=== PATIENT | female | born 1995 | race Caucasian/White ===

== ENCOUNTER 2016-07-27 08:33 | Inpatient (IN) | payer BC ==
[2016-07-27] MEDS ORDERED: SODIUM CHLORIDE 0.9% 3 ML FLUSH FLUSH PRN (08:56)
[2016-07-27] MEDS ORDERED: HYDROmorphone 1 MG INJECTION IV ONE ×2 (08:56→14:14)
[2016-07-27] MEDS ORDERED: ONDANSETRON HCL 4 MG/2 ML VIAL IV ONE ×2 (08:56→10:00)
[2016-07-27] MEDS ORDERED: NS 1,000 ML IV ONE ×2 (08:56)
--- NOTE | 2016-07-27 09:11 | EDPRACDOC ---
<Nida Bailon Hawa - Last Filed: 07/27/16 14:15> - General Information Information Source: Patient Mode Of Arrival: Car - History of Present Illness Onset: SEVERAL MONTHS Pain Location: Reports: Epigastric, RUQ Pain Context: Reports: Spontaneous (DURING AND AFTER ) Pain Severity: Moderate Pain Quality: Reports: Aching, Sharp, Stabbing Pain Radiation: Reports: Back (RT) Last Menstrual Period: NOW Blood Type: Unknown Adult Abdominal History: Denies: Urolithiasis Female Abdominal History: Denies: UTI, Ectopic, PID, Urolithiasis Modifying Factors: improves with: Food Female Associated Signs & Symptoms: Reports: Nausea, Vomiting Oral Intake: Normal Urinary Output: Normal <Nickolas Peters - Last Filed: 07/27/16 14:48> - General Information Chief Complaint: Nausea,Vomiting,Diarrhea Stated Complaint: VOMITING/ FEVER Time Seen by Provider: 07/27/16 08:54 Home Medications: Home Medications Pantoprazole Sodium [Protonix] 40 mg PO DAILY #30 tab 10/11/15 Norgestimate-Ethinyl Estradiol [Sprintec] 1 each PO DAILY 07/27/16 Ondansetron [Zofran Odt] 4 mg PO Q8H PRN 07/27/16 Promethazine [Phenergan] 25 mg PO Q6H PRN 07/27/16 Promethazine [Phenergan] 25 mg TX Q6H PRN 07/27/16 Ranitidine [Zantac] 300 mg PO HS 07/27/16 Allergies/Adverse Reactions: Allergies Allergy/AdvReac Type Severity Reaction Status Date / Time No Known Allergies Allergy Verified 07/27/16 08:48 - History of Present Illness HPI: PT STATES HAS BEEN HAVING EPIGASTRIC AND RUQ PAIN FOR 2-3 MONTHS, PT STATES SHE IS POST APPROX 2 MONTHS AND WAS TOLD AT [facility] THAT HER GALLBLADDER WAS BAD AND THEY GAVE HER FLUIDS PHENERGAN AND VITAMINS AND TOLD IF SHE STARTED HAVING MORE PAIN RUNNING FEVER OR N/V TO COME TO THE ED SHE MAY NEED HER GALLBLADDER OUT. (Nickolas Peters) ED Past Medical History - History Reviewed Yes Nurses notes reviewed and agree except as marked Travel Outside of [place] in the Last 3 Months?: No - Patient Medical History GI/ History: Reports: Gastroesophageal Reflux. Denies: Urinary Tract Infection Musculoskeletal History: Denies: Arthritis Systemic History: Denies: Cancer Surgical History: Denies: Hysterectomy - Social Medical History Smoking Status: Never smoker ETOH: None Substance Abuse: None Lives With: Other Lives In: Home <Nickolas Peters - Last Filed: 07/27/16 14:48> EDM Review of Systems - Review of Systems ROS Negative Except as Marked: Yes All systems reviewed and were negative except as marked Constitutional: No Symptoms Reported. negative: Fever, Chills, Weakness, Fatigue, Loss of Appetite Eyes: No Symptoms Reported. negative: Redness, Blurred Vision, Double Vision, Discharge, Pain, Light Sensitive, Photophobia Ears: No Symptoms Reported. negative: Pain, Hearing Loss, Drainage, Ear Pulling Throat: No Symptoms Reported. negative: Pain, Swelling Nose: No Symptoms Reported. negative: Congestion, Bleeding, Discharge, Injection, Swelling, Deformity, Ecchymosis, Tender, Abrasion, Laceration Mouth: No Symptoms Reported. negative: Pain, Drooling Respiratory: No Symptoms Reported. negative: Cough, Brassy Cough, Barky Cough, Shortness of Breath, Wheezing, Hemoptysis Cardiovascular: No Symptoms Reported. negative: Chest Pain, Palpitations, Syncope, Edema, Orthopnea, PND, Skin Mottling, Cyanosis Gastrointestinal: Nausea, Pain, Vomiting. negative: Constipation, Diarrhea, Formula Intolerance, Melena Genitourinary: No Symptoms Reported. negative: Dysuria, Hematuria, Frequency, Discharge, Bleeding, Testicular Pain, Neurological: No Symptoms Reported. negative: Headache, Dizziness, Seizure, Numbness, Weakness, Speech Difficulty, Gait Difficulty Musculoskeletal: No Symptoms Reported. negative: Neck, Chestwall, Ribs, Back, Shoulder, Arm, Elbow, Forearm, Wrist, Hand, Pelvis, Hip, Femur, Knee, Leg, Ankle , Foot Integumentary: No Symptoms Reported. negative: Itching, Rash, Bruising, Wound Allergic/Immunologic: No Symptoms Reported. negative: Hives, Itching Hematologic: No Symptoms Reported. negative: Lymphadenopathy, Easy Bruising, Easy Bleeding Endocrine: No Symptoms Reported. negative: Weight Gain, Weight Loss Psychiatric: No Symptoms Reported. negative: Anxiety, Depression, Hallucinations, Insomnia, Suicidal <Nickolas Peters - Last Filed: 07/27/16 14:48> - Physical Exam Constitutional: Alert (Awake), No apparent distress Oriented to: Time, Person, Place - HEENT Head: Normal ( normocephalic) Eye Exam: Normal (PERRL, EOMI, Sclera white) Oropharynx: Normal (Pharynx:Moist without exudate,Gums-no swelling) Tympanic Membrane: Normal ENT EAC: Normal TMJ: Normal Nose: No Symptoms Reported (septum midline) Neck: Normal (FROM, trachea at midline) - Respiratory/Cardiovascular Respiratory: Normal - CTA (BBS clear to auscultation without adventitious sounds ) Cardiovascular: Normal (RRR without murmur, gallop or rub) - GI Auscultation: Normal (NABS) Palpation: Normal (Soft,No rebound or guarding, non distended) Tenderness: Moderate Dao's Sign: Negative - Bladder: Normal - Musculoskeletal Back: Normal (Non-Tender) Extremities: Normal (Normal tone, Pulses 2+ No cyanosis or edema, FROM) - Integumentary Skin: Normal, Warm, Dry Lymphatics: Normal (no adenopathy) - Neurologic Memory Impaired: Normal Motor Function: Normal (Normal tone, Pulses 2+ No cyanosis or edema, FROM) Cranial Nerve: Normal (CN II-X11 intact sensation, strength 5/5) Cerebellar: Normal Mood Description: Normal Perception: Normal <Nickolas Peters - Last Filed: 07/27/16 14:48> - Physical Exam Last recorded Vital Signs: Last Vital Signs Temp 98.0 F 07/27/16 08:43 Pulse 56 L 07/27/16 13:45 Resp 18 07/27/16 13:45 BP 149/87 07/27/16 13:45 Pulse Ox 98 07/27/16 13:45 Oxygen Pulse Oxygen Saturation 98 O2 Device Oxygen Flow Rate Fraction of Inspired Oxygen ( FIO2) (Nida Bailon) (Nickolas Peters) - Re-evaluation Re-evaluation 3 Re-evaluation Time: 12:58 - Results 07/27/16 10:00 07/27/16 10:00 - Diagnostic Imaging Abdomen Image interpreted by: Radiologist <Nida Bailon - Last Filed: 07/27/16 14:15> - Differential Diagnosis Cholecystitis, Cholelithiasis, Colic, Constipation, UTI - Results 07/27/16 10:00 07/27/16 10:00 <Nickolas Peters - Last Filed: 07/27/16 14:48> - Re-evaluation Re-evaluation 3 PAIN NEARLY CONSTANT FOR THE PAST 24 HOURS. HOWEVER SHE HAS BEEN BATTLING THIS PROBLEM OFF AND ON FOR PAST SEVERAL MONTHS. AT THIS POINT NOW HER PAIN IS RETURNING. (Nida Bailon) - Results WBC 13.2 xk/uL (3.8-10.8) H 07/27/16 10:00 RBC 4.88 xM/uL (4.20-5.40) 07/27/16 10:00 Hgb 12.5 g/dL (12.0-16.0) 07/27/16 10:00 Hct 38.7 % (36-47) 07/27/16 10:00 MCV 79 fL (81-99) L 07/27/16 10:00 MCH 25.6 pg (27-32) L 07/27/16 10:00 MCHC 32.2 g/dl (33-36) L 07/27/16 10:00 RDW 18.6 % (11.5-14.5) H 07/27/16 10:00 Plt Count 578 xk/uL (130-400) H 07/27/16 10:00 MPV 7.8 fL (7.4-10.4) 07/27/16 10:00 Neut % (Auto) 76.7 % (45-76) H 07/27/16 10:00 Lymph % (Auto) 15.4 % (17-44) L 07/27/16 10:00 [place] % (Auto) 6.3 % (3-10) 07/27/16 10:00 Eos % (Auto) 1.0 % (0-5) 07/27/16 10:00 Baso % (Auto) 0.6 % (0-2) 07/27/16 10:00 Absolute Neuts (auto) 10.03 xk/uL (1.7-8.2) H 07/27/16 10:00 Absolute Lymphs (auto) 1.98 xk/uL (0.65-4.75) 07/27/16 10:00 Sodium 139 mEq/L (137-146) 07/27/16 10:00 Potassium 3.8 mEq/L (3.5-5.1) 07/27/16 10:00 Chloride 105 mEq/L (98-107) 07/27/16 10:00 Carbon Dioxide 22 mMOL/L (22-33) 07/27/16 10:00 Anion Gap 16 mEq/L (8-16) 07/27/16 10:00 BUN 7 MG/DL (7-17) 07/27/16 10:00 Creatinine 0.70 MG/DL (0.52-1.04) 07/27/16 10:00 Estimated GFR (MDRD) > 60 mL/min (>=60) 07/27/16 10:00 Glucose 98 MG/DL (70-99) 07/27/16 10:00 Calculated Osmolality 266 MOs/Kg (270-290) L 07/27/16 10:00 Calcium 8.7 MG/DL (8.4-10.2) 07/27/16 10:00 Total Bilirubin 1.1 MG/DL (0.2-1.3) 07/27/16 10:00 AST 33 IU/L (14-36) 07/27/16 10:00 ALT 62 IU/L (9-52) H 07/27/16 10:00 Alkaline Phosphatase 74 IU/L (38-126) 07/27/16 10:00 Total Protein 7.2 G/DL (6.3-8.2) 07/27/16 10:00 Albumin 4.1 G/DL (3.5-5.0) 07/27/16 10:00 Lipase 80 U/L (23-300) 07/27/16 10:00 Urine Color Yellow 07/27/16 11:10 Urine Clarity Cldy 07/27/16 11:10 Urine pH 7.0 (5.0-8.0) 07/27/16 11:10 Ur Specific [place] 1.010 (1.003-1.035) 07/27/16 11:10 Urine Protein Neg (NEG/TRACE) 07/27/16 11:10 Urine Glucose (UA) Neg (NEGATIVE) 07/27/16 11:10 Urine Ketones 1+ (NEGATIVE) H 07/27/16 11:10 Urine Occult Blood 2+ (NEG/TRACE) H 07/27/16 11:10 Urine Nitrite Neg (NEGATIVE) 07/27/16 11:10 Urine Bilirubin Neg (NEGATIVE) 07/27/16 11:10 Urine Urobilinogen 0.2 MG/DL (0-1) 07/27/16 11:10 Ur Leukocyte Esterase Neg (NEGATIVE) 07/27/16 11:10 Urine RBC Tntc (0-5) H 07/27/16 11:10 Ur Epithelial Cells 2+ 07/27/16 11:10 Amorphous Sediment 2+ 07/27/16 11:10 Urine Bacteria Few (NEG/FEW) 07/27/16 11:10 Urine Mucus Mod (NEG/OCC) H 07/27/16 11:10 Lab Results 07/27/16 07/27/16 07/27/16 11:10 10:00 10:00 WBC 13.2 H RBC 4.88 Hgb 12.5 Hct 38.7 MCV 79 L MCH 25.6 L MCHC 32.2 L RDW 18.6 H Plt Count 578 H MPV 7.8 Neut % (Auto) 76.7 H Lymph % (Auto) 15.4 L [place] % (Auto) 6.3 Eos % (Auto) 1.0 Baso % (Auto) 0.6 Absolute Neuts (auto) 10.03 H Absolute Lymphs (auto) 1.98 Sodium Potassium Chloride Carbon Dioxide Anion Gap BUN Creatinine Estimated GFR (MDRD) Glucose Calculated Osmolality Calcium Total Bilirubin AST ALT Alkaline Phosphatase Total Protein Albumin Lipase 80 Urine Color Yellow Urine Clarity Cldy Urine pH 7.0 Ur Specific [place] 1.010 Urine Protein Neg Urine Glucose (UA) Neg Urine Ketones 1+ H Urine Occult Blood 2+ H Urine Nitrite Neg Urine Bilirubin Neg Urine Urobilinogen 0.2 Ur Leukocyte Esterase Neg Urine RBC Tntc H Ur Epithelial Cells 2+ Amorphous Sediment 2+ Urine Bacteria Few Urine Mucus Mod H 07/27/16 10:00 WBC RBC Hgb Hct MCV MCH MCHC RDW Plt Count MPV Neut % (Auto) Lymph % (Auto) [place] % (Auto) Eos % (Auto) Baso % (Auto) Absolute Neuts (auto) Absolute Lymphs (auto) Sodium 139 Potassium 3.8 Chloride 105 Carbon Dioxide 22 Anion Gap 16 BUN 7 Creatinine 0.70 Estimated GFR (MDRD) > 60 Glucose 98 Calculated Osmolality 266 L Calcium 8.7 Total Bilirubin 1.1 AST 33 ALT 62 H Alkaline Phosphatase 74 Total Protein 7.2 Albumin 4.1 Lipase Urine Color Urine Clarity Urine pH Ur Specific [place] Urine Protein Urine Glucose (UA) Urine Ketones Urine Occult Blood Urine Nitrite Urine Bilirubin Urine Urobilinogen Ur Leukocyte Esterase Urine RBC Ur Epithelial Cells Amorphous Sediment Urine Bacteria Urine Mucus (Nida Bailon) - Diagnostic Imaging Abdomen 07/27/16 12:46 Patient Name: LUDIVINA CONNOR LOC: ED : 1995 AGE: 20 Order Date:07/27/16 Date of Service: Report # [id number] Ord Physician: Nickolas Peters Exam # [id number] Emergency Physician: Nida Bailon MD Exam(s): [id number] CT/CT ABD-PELV W/IV CM CLINICAL DATA: Upper abdominal pain with nausea and vomiting for 8 months. Cholelithiasis. EXAM: CT ABDOMEN AND PELVIS WITH CONTRAST TECHNIQUE: Multidetector CT imaging of the abdomen and pelvis was performed using the standard protocol following bolus administration of intravenous contrast. CONTRAST: 80 mL Isovue 370 COMPARISON: 02/20/2012 FINDINGS: Lower chest: No acute findings. Hepatobiliary: No masses or other significant abnormality. Gallbladder is unremarkable. Pancreas: No mass, inflammatory changes, or other significant abnormality. Spleen: Within normal limits in size and appearance. Adrenals/Urinary Tract: No masses identified. No evidence of hydronephrosis. Stomach/Bowel: No evidence of obstruction, inflammatory process, or abnormal fluid collections. Normal appendix visualized. Vascular/Lymphatic: No pathologically enlarged lymph nodes. No evidence of abdominal aortic aneurysm. Reproductive: Uterus is unremarkable in appearance. A 3.6 cm benign-appearing right ovarian cyst is seen, which is most likely physiologic in a reproductive age female. Tiny amount of free fluid noted in pelvic cul-de-sac. No other masses identified. Other: None. Musculoskeletal: No suspicious bone lesions identified. IMPRESSION: 3.6 cm benign appearing right ovarian cyst and tiny amount of free fluid, most likely physiologic in a reproductive age female. New no other significant abnormality identified within the abdomen or pelvis. Electronically Signed By: Stanislaw Laguna M.D. On: 07/27/2016 12:33 Electronically Signed By: Stanislaw Laguna MD Electronically Signed Date/Time: 236 Dictate Date/Time: 07/27/16 1159 Technologist: Colt Gallardo Transcribed By: Fany Transcribed Date/Time: 07/27/16 1233 (Nida Bailon) - Departure Disposition: Admit IP To This Hospital Education/Counseling Given To: Patient, Family Member Education/Counseling Given Regarding: Diagnosis, Treatment, Prognosis Decision to Admit Time: 14:16 Decision to admit date: 07/27/16 Decision to admit: from ED - Physician Consulted Surgery Time Called: 12:57 Provider Called: Krish Rosen (VM TO CALL ED) Time Correction Worker Returned Call: 14:16 <Nida Bailon - Last Filed: 07/27/16 14:15> <Nickolas Peters - Last Filed: 07/27/16 14:48> - Departure Condition: Stable Final Diagnosis: Acute cholecystitis Referrals: Parul Gonzales PA [Primary Care Provider] - As Needed
[2016-07-27] MEDS ORDERED: NEOSTIGMINE 1 MG/1 ML (1:1000) INJ 10 ML MDV IM ONE (10:00)
[2016-07-27] MEDS ORDERED: METOCLOPRAMIDE 10 MG/2 ML VIAL IV ONE (10:00)
[2016-07-27] MEDS ORDERED: GLYCOPYRROLATE 1 MG VIAL IM ONE (10:00)
[2016-07-27] MEDS ORDERED: FENTANYL 250 MCG/5 ML VIAL IV ONE (10:00)
[2016-07-27] MEDS ORDERED: LIDOCAINE 100 MG PFS IV ONE (10:00)
[2016-07-27] MEDS ORDERED: PROPOFOL 200 MG/20 ML VIAL IV ONE (10:00)
[2016-07-27] MEDS ORDERED: ROCURONIUM 50 MG/5 ML VIAL IV ONE (10:00)
[2016-07-27] MEDS ORDERED: DEXAMETHASONE 4 MG/ML VIAL IV ONE (10:00)
[2016-07-27] MEDS ORDERED: MIDAZOLAM 2 MG/2 ML VIAL IV ONE (10:00)
[2016-07-27] MEDS ORDERED: SUCCINYLCHOLINE 20 MG/1 ML INJ 10 ML MDV IV ONE (10:00)
[2016-07-27 10:20] LABS: AUTOMATED BASOPHIL 0.6 % (0-2); AUTOMATED LYMPH 15.4 % (17-44); AUTOMATED MONOCYTE 6.3 % (3-10); AUTOMATED NEUTROPHIL 76.7 % (45-76); MPV 7.8 fL (7.4-10.4)
[2016-07-27 10:33] LABS: BLOOD UREA NITROGEN 7 MG/DL (7-17); CALCIUM 8.7 MG/DL (8.4-10.2); CALCULATED OSMOLALITY 266 MOs/Kg (270-290); CHLORIDE 105 mEq/L (98-107); GLUCOSE 98 MG/DL (70-99); SODIUM LEVEL 139 mEq/L (137-146); TOTAL PROTEIN 7.2 G/DL (6.3-8.2)
[2016-07-27] MEDS ORDERED: Pharmacy Review for Metformin - IV Contrast Given SCH (11:00)
[2016-07-27 11:25] LABS: AMORPHOUS 2+; RBC/URINE TNTC (0-5)
[2016-07-27 11:36] LABS: LEUKOCYTES/URINE NEG (NEGATIVE); NITRITE/URINE NEG (NEGATIVE); URINE OCCULT BLOOD 2+ (NEG/TRACE)
--- NOTE | 2016-07-27 12:36 | DIRPT ---
CLINICAL DATA: Upper abdominal pain with nausea and vomiting for 8 months. Cholelithiasis. EXAM: CT ABDOMEN AND PELVIS WITH CONTRAST TECHNIQUE: Multidetector CT imaging of the abdomen and pelvis was performed using the standard protocol following bolus administration of intravenous contrast. CONTRAST: 80 mL Isovue 370 COMPARISON: 02/20/2012 FINDINGS: Lower chest: No acute findings. Hepatobiliary: No masses or other significant abnormality. Gallbladder is unremarkable. Pancreas: No mass, inflammatory changes, or other significant abnormality. Spleen: Within normal limits in size and appearance. Adrenals/Urinary Tract: No masses identified. No evidence of hydronephrosis. Stomach/Bowel: No evidence of obstruction, inflammatory process, or abnormal fluid collections. Normal appendix visualized. Vascular/Lymphatic: No pathologically enlarged lymph nodes. No evidence of abdominal aortic aneurysm. Reproductive: Uterus is unremarkable in appearance. A 3.6 cm benign-appearing right ovarian cyst is seen, which is most likely physiologic in a reproductive age female. Tiny amount of free fluid noted in pelvic cul-de-sac. No other masses identified. Other: None. Musculoskeletal: No suspicious bone lesions identified. IMPRESSION: 3.6 cm benign appearing right ovarian cyst and tiny amount of free fluid, most likely physiologic in a reproductive age female. New no other significant abnormality identified within the abdomen or pelvis. Electronically Signed By: Stanislaw Laguna M.D. On: 07/27/2016 12:33
[2016-07-27] MEDS ORDERED: PIPERACILLIN AND TAZOBACTAM 3.375 GM in D5W 100 ML IV ONE (13:01)
[2016-07-27] MEDS ORDERED: LR 1,000 ML IV ONE (14:22)
[2016-07-27] MEDS ORDERED: ACETAMINOPHEN 325 MG/TAB TABLET PO PRN (14:22)
[2016-07-27] MEDS ORDERED: SIMETHICONE 80 MG TAB PO PRN (14:22)
[2016-07-27 15:57] VITALS: BMI 22.8
[2016-07-27] MEDS ORDERED: Vaccine Screening Complete SCH (16:00)
[2016-07-27] MEDS: Metronidazole 500 mg/100 ml 500 MG/100 ML RTU IV SCH (16:20)
[2016-07-27] MEDS: Levofloxacin 500 mg/100 ml D5W 500 MG/100 ML RTU IV SCH (17:45)
--- NOTE | 2016-07-27 18:26 | HISTPHYS ---
- Chief Complaint Abd Pain - History of Present Illness 20 YO WF with RUQ and epigastric pain. This has been getting worse. Unfortunately she has been having this since early in her . She is now 2 months post-. The pain in in her RUQ and Epigastric areas. This is worse after eating. No alleviating factors noted. This has been followed by N/V and occasional loose stools. The pain is sharp and stabbing /10. - Medical History Cardiac History: Reports: No Significant History Respiratory History: Reports: No Significant History GI/ History: Reports: Gastroesophageal Reflux. Denies: Urinary Tract Infection Musculoskeletal History: Denies: Arthritis Systemic History: Denies: Cancer Neurological History: Reports: No Significant History Psychological History: Reports: No Significant History - Surgical History Reports: Other (vee sbairon). Denies: Hysterectomy - Medictions/Allergies Allergies No Known Allergies Allergy (Verified 07/27/16 08:48) Home Medications Pantoprazole Sodium [Protonix] 40 mg PO DAILY #30 tab 10/11/15 Norgestimate-Ethinyl Estradiol [Sprintec] 1 each PO DAILY 07/27/16 Ondansetron [Zofran Odt] 4 mg PO Q8H PRN 07/27/16 Promethazine [Phenergan] 25 mg PO Q6H PRN 07/27/16 Promethazine [Phenergan] 25 mg MA Q6H PRN 07/27/16 Ranitidine [Zantac] 300 mg PO HS 07/27/16 - Family History Reports: Hypertension (mom dad). Denies: Diabetes, Cancer, Stroke, Cardiac Disorders - Social History Travel Outside of [place] in the Last 3 Months?: No Smoking Status: Never smoker - Review of Systems Constitutional: Loss of Appetite. negative: Chills, Fever, Fatigue Eyes: negative: Pain, Photophobia Ears: negative: Hearing Loss, Tinnitus Nose: negative: Congestion, Discharge, Deformity Respiratory: negative: Cough, Hemoptysis, Shortness of Breath, Wheezing Cardiovascular: negative: Chest Pain, Cyanosis, Edema, Orthopnea, Palpitations Gastrointestinal: Nausea, Vomiting, Abdominal Pain. negative: Melena, Hematochezia Genitourinary: negative: Dysuria, Hematuria Neurological: negative: Headache, Seizure Musculoskeletal:: negative: Weakness, Joint Pain Integumentary: negative: Itching, Rash, Wound Allergic/Immunologic: negative: Hives, Itching Hematologic: negative: Lymphadenopathy, Easy Bruising, Easy Bleeding Endocrine: negative: Weight Gain, Weight Loss, Excessive Thirst, Excessive Hunger Psychiatric: negative: Anxiety, Depression - Physical Exam Vital Signs: Initial Vitals Temperature 98.0 F 07/27/16 08:43 Pulse Rate 72 07/27/16 08:43 Respiratory Rate 20 07/27/16 08:43 Blood Pressure 192/115 H 07/27/16 08:43 Pulse Oxygen Saturation 98 07/27/16 08:43 Constitutional: No apparent distress, Alert Oriented to: Time, Person, Place - HEENT Head: Normal. negative: Swelling Eye: negative: Edema, Scleral Icterus Respiratory: Normal - CTA. negative: Rales, Rhonchi, Stridor, Tachypnea, Wheezes Cardiovascular: negative: Bradycardia, Tachycardia, Irregular - GI Auscultation: Normal Palpation: Normal Tenderness: Moderate, RUQ, Epigastric Dao's Sign: Positive - Musculoskeletal Back: negative: Ecchymosis, CVA Tenderness Extremities: negative: Clubbing, Cyanosis, Edema - Lab Results Laboratory Results - last 24 hr 07/27/16 07/27/16 07/27/16 10:00 10:00 10:00 WBC 13.2 H RBC 4.88 Hgb 12.5 Hct 38.7 MCV 79 L MCH 25.6 L MCHC 32.2 L RDW 18.6 H Plt Count 578 H MPV 7.8 Neut % (Auto) 76.7 H Lymph % (Auto) 15.4 L [place] % (Auto) 6.3 Eos % (Auto) 1.0 Baso % (Auto) 0.6 Absolute Neuts (auto) 10.03 H Absolute Lymphs (auto) 1.98 Sodium 139 Potassium 3.8 Chloride 105 Carbon Dioxide 22 Anion Gap 16 BUN 7 Creatinine 0.70 Estimated GFR (MDRD) > 60 Glucose 98 Calculated Osmolality 266 L Calcium 8.7 Total Bilirubin 1.1 AST 33 ALT 62 H Alkaline Phosphatase 74 Total Protein 7.2 Albumin 4.1 Lipase 80 Urine Color Urine Clarity Urine pH Ur Specific [place] Urine Protein Urine Glucose (UA) Urine Ketones Urine Occult Blood Urine Nitrite Urine Bilirubin Urine Urobilinogen Ur Leukocyte Esterase Urine RBC Ur Epithelial Cells Amorphous Sediment Urine Bacteria Urine Mucus 07/27/16 11:10 WBC RBC Hgb Hct MCV MCH MCHC RDW Plt Count MPV Neut % (Auto) Lymph % (Auto) [place] % (Auto) Eos % (Auto) Baso % (Auto) Absolute Neuts (auto) Absolute Lymphs (auto) Sodium Potassium Chloride Carbon Dioxide Anion Gap BUN Creatinine Estimated GFR (MDRD) Glucose Calculated Osmolality Calcium Total Bilirubin AST ALT Alkaline Phosphatase Total Protein Albumin Lipase Urine Color Yellow Urine Clarity Cldy Urine pH 7.0 Ur Specific [place] 1.010 Urine Protein Neg Urine Glucose (UA) Neg Urine Ketones 1+ H Urine Occult Blood 2+ H Urine Nitrite Neg Urine Bilirubin Neg Urine Urobilinogen 0.2 Ur Leukocyte Esterase Neg Urine RBC Tntc H Ur Epithelial Cells 2+ Amorphous Sediment 2+ Urine Bacteria Few Urine Mucus Mod H - Assessment/Plan (1) Nausea & vomiting R11.2 - NAUSEA WITH VOMITING, UNSPECIFIED Acute (2) RUQ abdominal pain R10.11 - RIGHT UPPER QUADRANT PAIN Acute (3) Epigastric abdominal pain R10.13 - EPIGASTRIC PAIN Acute (4) Acute cholecystitis K81.0 - ACUTE CHOLECYSTITIS Acute Plan: Patient will need to go ahead with surgery. The risks of bleeding, infection, bile leak and ductal injury were all discussed. All her questions were answered. Start IVF and IV antibiotics.
[2016-07-27] MEDS: SODIUM CHLORIDE 0.9% 3 ML FLUSH FLUSH SCH (19:23)
[2016-07-27] MEDS: HYDROmorphone 1 MG INJECTION IV PRN ×2 (19:23→23:22)
[2016-07-27] MEDS: ONDANSETRON HCL 4 MG/2 ML VIAL IV PRN (21:21)
[2016-07-28] MEDS: Metronidazole 500 mg/100 ml 500 MG/100 ML RTU IV SCH ×4 (00:57→22:59)
[2016-07-28] MEDS: HYDROmorphone 1 MG INJECTION IV PRN ×7 (02:30→21:55)
[2016-07-28] MEDS: ONDANSETRON HCL 4 MG/2 ML VIAL IV PRN ×3 (05:18→23:03)
[2016-07-28] MEDS: PANTOPRAZOLE 40 MG TAB PO SCH (05:24)
[2016-07-28] MEDS: SODIUM CHLORIDE 0.9% 3 ML FLUSH FLUSH SCH ×2 (05:24→18:07)
[2016-07-28] MEDS ORDERED: CHAPSTICK LIP BALM ONE (05:27)
[2016-07-28] MEDS ORDERED: FLU VACCINE (Afluria) 0.5 ML DOSE IM ONE (08:00)
[2016-07-28] MEDS: BUPIVACAINE 0.25% 30 ML VIAL ONE ×2 (09:41→13:02)
[2016-07-28] MEDS: ISOVUE-300 (61%) 50 ML ONE ×2 (09:42→12:30)
[2016-07-28] MEDS ORDERED: ONDANSETRON HCL 4 MG/2 ML VIAL ONE (09:50)
[2016-07-28] MEDS ORDERED: HYDROmorphone 1 MG INJECTION ONE (09:56)
[2016-07-28] MEDS ORDERED: LABETALOL 20 MG/4 ML SYRINGE IV PRN (10:29)
[2016-07-28] MEDS ORDERED: HYDROmorphone 1 MG INJECTION IV PRN ×2 (10:29)
[2016-07-28] MEDS ORDERED: FENTANYL 100 MCG/2 ML VIAL IV PRN (10:29)
[2016-07-28] MEDS ORDERED: MEPERIDINE 25 MG/ML TUBEX IV PRN (10:29)
[2016-07-28] MEDS ORDERED: ONDANSETRON HCL 4 MG/2 ML VIAL IV PRN (10:29)
[2016-07-28] MEDS ORDERED: hydrALAZINE 20 MG/ML VIAL IV PRN (10:29)
[2016-07-28] MEDS ORDERED: ONDANSETRON HCL 4 MG ODT TAB PO PRN (10:29)
--- NOTE | 2016-07-28 10:31 | HIM.ANES ---
Anesthesia Evaluation & Plan - Focused Review of Systems Now: No Cardiac History: No: Hx Cardiac Disorders HEENT: No: Other HEENT Problems Gastrointestinal: Yes: Hx Gastroesophageal Reflux Disease, Hx Gastrointestinal Disorders Neurological/Musculoskeletal: No: Hx Neurological Disorders Psychological: No Hx Depression, No Hx Mental/Emotional Disorders Blood/Autoimmune: Yes: Hx Hepatitis (type) (exposed to hep c) No: Hx AIDS Smoking Status: Never smoker Alcohol use: None Hx Stress Test (date): No Hx Echocardiogram (date): No Hx Chest Xray (date): No Surgical History: Yes: Other (kne sx) Other Surgical History: vaginal delivery 05/2016 - Focused Physical Exam NPO since: mn Mallampati: Class II Thyromental Distance: Greater than 3 Neck: Full Range of Motion Dental: Normal - no significant findings Cardiovascular/Chest: Normal Respiratory: Lungs clear Any problems with anesthesia, including nausea and vomiting?: No Any relatives with a history of Malignant Hyperthermia?: No Beta Jeff given (if appropriate): N/A Other: Problem List Problem Status Onset Acute cholecystitis Acute Epigastric abdominal pain Acute Nausea & vomiting Acute RUQ abdominal pain Acute Allergies Allergy/AdvReac Type Severity Reaction Status Date / Time No Known Allergies Allergy Verified 07/27/16 08:48 Home Medications Medication Instructions Recorded Last Taken Type Pantoprazole Sodium [Protonix] 40 mg PO DAILY #30 tab 10/11/15 07/26/16 Rx Norgestimate-Ethinyl Estradiol 1 each PO DAILY 07/27/16 07/26/16 History [Sprintec] Ondansetron [Zofran Odt] 4 mg PO Q8H PRN 07/27/16 07/26/16 History Promethazine [Phenergan] 25 mg PO Q6H PRN 07/27/16 07/26/16 History Promethazine [Phenergan] 25 mg PA Q6H PRN 07/27/16 Unknown History Ranitidine [Zantac] 300 mg PO HS 07/27/16 07/26/16 History Height and Weight Patient's height 5 ft 4 in Patient's weight 60.384 kg Weight (Calculated Kilograms) 60.384 BMI 22.8 Vital Signs Temperature 98.5 F 07/28/16 05:30 Pulse Rate 62 07/28/16 05:30 Respiratory Rate 18 07/28/16 05:30 Blood Pressure 129/85 07/28/16 05:30 Pulse Oxygen Saturation 98 07/28/16 05:30 - Anesthetic Plan Anesthesia Type: General ASA Class: 2 -: I have examined this patient and reviewed the medical record. The patient has been assessed prior to anesthesia. Risks and benefits of anesthesia and anesthetic technique options have been discussed and all questions answered. The patient accepts the risk and desires me to proceed with the planned anesthetic.
[2016-07-28] MEDS ORDERED: FENTANYL 100 MCG/2 ML VIAL ONE (13:42)
[2016-07-28] MEDS: FENTANYL 100 MCG/2 ML VIAL IV PRN ×2 (13:43→13:54)
--- NOTE | 2016-07-28 13:53 | HIMOPRPT ---
PROCEDURE: DATE OF PROCEDURE: 07/28/16 PREOPERATIVE DIAGNOSES: Cholecystitis and cholelithiasis. POSTOPERATIVE DIAGNOSES: Cholecystitis and cholelithiasis. PROCEDURE: Laparoscopic cholecystectomy with intraoperative cholangiogram. SURGEON: Krish Rosen MD ANESTHESIA: General. COMPLICATIONS: None. ESTIMATED BLOOD LOSS: <5cc OPERATIVE NOTE: The patient was placed supine on the operative table. After induction of general anesthesia and endotracheal intubation, the patient was prepped and draped in the usual fashion. Time-out was taken. The patient was re- identified and the procedure was verified, and was given pre-operative antibiotics. An infraumbilical incision was made and a 5-mm Optiview trocar was placed without difficulties. The abdomen was insufflated with CO2 until a pressure of 15 mm HG was achieved. The camera was introduced and we inspected the abdominal cavity. The liver was smooth without any nodularities or masses. Her right ovary did indeed have a simple cyst. At this point, we placed two 5 mm ports in the right upper quadrant under direct visualization and an 11-mm port in the epigastric region. We were able to place a grasper on the dome, the other on the infundibulum of the gallbladder. The [place] of [place] was dissected using lateral retraction of the infundibulum thus exposing this critical angle between the cystic duct and CBD. The peritoneal attachment around the infundibulum of the gallbladder to the liver was dissected free using electrocautery. Thus giving a partial retrograde dissection. This allowed the visualization of the cystic duct and artery as they entered the gallbladder. Having developed this Critical View of Safety at the triangle of [place] we proceeded with our cholangiogram. A Handley clamp was placed across the body of the gallbladder, the tip of the catheter was inserted into the infundibulum. We then were able to flush this. Using the C-arm fluoroscopy unit , we performed a cholangiogram. In real time, we saw the passage of contrast throughout the biliary tree, common hepatic, common bile duct, but this did not emptying into the duodenum. A filling defect was noted in the distal CBD. At this point, the catheter was removed. Clips were placed on the cystic duct and artery and these structures were divided. A PDS loop was placed around the cystic duct stump. We then removed the gallbladder off the liver bed using electrocautery. The liver bed remained completely hemostatic. We removed the gallbladder and placed it into a laparoscopic retrieval bag. We irrigated the operative field and suctioned out the irrigation. We then removed the ports allowing the CO2 to escape. The patient then had the large port site closed at the level of the fascia using #0-Vicryl sutures. The wounds were all irrigated and infiltrated with 0.25% Marcaine. The skin edges were approximated using 4-0 Monocryl and Dermabond. The patient tolerated this well. Sponge, needle, and instrument counts were correct.
--- NOTE | 2016-07-28 13:59 | SC.ANESPOS ---
Post-Anesthesia Note LOC: Fully Awake Post-Anesthesia Assessment: Awake, Returned to Baseline, Hemodynamically Stable , Pain Control Adequate Phase I & II Recovery Complete: Yes Apparent Anesthesia Complication: No : N - Vital Signs Blood Pressure: 186/94 Pulse: 51 Resp Rate: 16 O2 Sat: 98 Temp: 97.5 F
--- NOTE | 2016-07-28 14:53 | DIRPT ---
CLINICAL DATA: Cholecystectomy EXAM: INTRAOPERATIVE CHOLANGIOGRAM TECHNIQUE: Cholangiographic images from the C-arm fluoroscopic device were submitted for interpretation post-operatively. Please see the procedural report for the amount of contrast and the fluoroscopy time utilized. COMPARISON: CT 07/27/2016 FINDINGS: There is no past of contrast from the distal CBD into the small bowel on the series. On the final image, there is a convincing fluid meniscus in the distal CBD. The intrahepatic bile ducts are incompletely visualized, appearing decompressed centrally. IMPRESSION: 1. Distal CBD obstruction with meniscus suggesting obstructing retained calculus. Electronically Signed By: Justino Menezes M.D. On: 07/28/2016 14:50
[2016-07-28] MEDS: hydrALAZINE 20 MG/ML VIAL IV PRN (15:29)
[2016-07-28] MEDS ORDERED: Acetaminophen, Intravenous 1,000 MG/100 ML IVBOT IV ONE (16:29)
[2016-07-28] MEDS ORDERED: Pharmacy Discontinue All Previous Acetaminophen Orders SCH (17:00)
[2016-07-28] MEDS ORDERED: hydrALAZINE 20 MG/ML VIAL IV ONE (18:00)
[2016-07-28] MEDS: Levofloxacin 500 mg/100 ml D5W 500 MG/100 ML RTU IV SCH (18:08)
[2016-07-28] MEDS: Acetaminophen, Intravenous 1,000 MG/100 ML IVBOT IV SCH (21:56)
[2016-07-28] MEDS: OXYCODONE HCL 5 MG TABLET PO PRN (22:58)
[2016-07-29] MEDS: HYDROmorphone 1 MG INJECTION IV PRN ×12 (00:09→23:46)
[2016-07-29] MEDS: hydrALAZINE 20 MG/ML VIAL IV PRN (01:22)
[2016-07-29] MEDS: ONDANSETRON HCL 4 MG/2 ML VIAL IV PRN ×2 (05:40→22:03)
[2016-07-29] MEDS: PANTOPRAZOLE 40 MG TAB PO SCH (05:40)
[2016-07-29] MEDS: Acetaminophen, Intravenous 1,000 MG/100 ML IVBOT IV SCH ×3 (05:40→16:20)
[2016-07-29] MEDS: SODIUM CHLORIDE 0.9% 3 ML FLUSH FLUSH SCH ×3 (05:40→17:30)
[2016-07-29] MEDS ORDERED: FLU VACCINE (Afluria) 0.5 ML DOSE IM ONE (08:00)
[2016-07-29] MEDS: Metronidazole 500 mg/100 ml 500 MG/100 ML RTU IV SCH ×3 (09:09→23:45)
--- NOTE | 2016-07-29 13:00 | PCM.SURGRO ---
- Subjective Patient: Reports: No new complaints, Feels better - Objective / Physical Exam Vital Signs: Temperature: 98.3 F (07/29/16 09:39) HR: 96 (07/29/16 11:49)RR: 18 (07/29/16 09: 39) BP: 128/83 (07/29/16 11:49)Pulse Ox: 97 (07/29/16 09:39) General: Alert, Oriented x3, Cooperative HEENT: Normal, Anicteric Sclera Respiratory: Normal - CTA. negative: Rales, Rhonchi Cardiovascular: Regular rate and rhythm, No Gallops,Rubs/Murmurs Gastrointestinal: Soft. negative: Distended, Tender - Assessment and Plan (1) Nausea & vomiting Acute R11.2 - NAUSEA WITH VOMITING, UNSPECIFIED V V (2) RUQ abdominal pain Acute R10.11 - RIGHT UPPER QUADRANT PAIN (3) Epigastric abdominal pain Acute R10.13 - EPIGASTRIC PAIN (4) Acute cholecystitis Acute K81.0 - ACUTE CHOLECYSTITIS Plan: S/P IOC. GI consult pending. will need ERCP.
--- NOTE | 2016-07-29 13:54 | PCM.CONSGI ---
Consult Date: 07/29/16 Consult Requesting Physician: Krish Rosen Consult Reason: Other (choledocholithiasis) - History of Present Illness Ms Blankenship is a 20-year-old healthy female 2 months presented with symptomatic cholelithiasis status post laparoscopic cholecystectomy 07-28-16. A cholangiogram revealed a filling defect consistent with choledocholithiasis a GI consult was obtained. Ms Blankenship had an uneventful cholecystectomy. She had been having symptomatic biliary colic she feels during her entire . She was taking both Protonix and Zantac daily. She was having a lot of nausea and chest burning in epigastric pain. This did not change with the delivery of her baby. She had a biliary ultrasound showed cholelithiasis. Shortly after this she had a severe episode of pain and presented to the emergency room and was subsequently admitted for further care. She continues to have some abdominal soreness and tenderness postoperatively. She is not having any nausea. She is beginning to take liquids. She has never had any prior abdominal surgeries or GI procedures. Her was only complicated by hyperemesis gravis which is possibly from her cholelithiasis. She does have a family history of gallstones. She has no dysphagia. She has had no fevers or sweats. We discussed ERCP. The risk were reviewed. And informational pamphlet was given to the patient and her family. - Past Medical History Cardiac History: Reports: No Significant History Respiratory History: Reports: No Significant History GI/ History: Reports: No Significant History, Hepatitis (type) (exposed to hep c) Musculoskeletal History: Reports: No Significant History Systemic History: Reports: No Significant History Neurological History: Reports: No Significant History Psychological History: Reports: No Significant History. Denies: Depression - Surgical History Past Surgical History: Reports: No Significant History. Denies: Hysterectomy - Family History Family History: Reports: Hypertension (mom dad). Denies: Diabetes, Cardiac Disorders, Cancer, Stroke - Allergies Allergies No Known Allergies Allergy (Verified 07/27/16 08:48) - Medications Home Medications Pantoprazole Sodium [Protonix] 40 mg PO DAILY #30 tab 10/11/15 Norgestimate-Ethinyl Estradiol [Sprintec] 1 each PO DAILY 07/27/16 Ondansetron [Zofran Odt] 4 mg PO Q8H PRN 07/27/16 Promethazine [Phenergan] 25 mg PO Q6H PRN 07/27/16 Promethazine [Phenergan] 25 mg [place] Q6H PRN 07/27/16 Ranitidine [Zantac] 300 mg PO HS 07/27/16 - Social History Smoking Status: Never smoker - Review of Systems Constitutional: Loss of Appetite, Weight loss. negative: Chills, Fever Eyes: negative: Double Vision Ears: negative: Hearing Loss Throat: negative: Hoarseness Nose: negative: Congestion Respiratory: negative: Cough, Hemoptysis, Shortness of Breath Cardiovascular: negative: Chest Pain Gastrointestinal: Nausea, Vomiting, Abdominal Pain, Heartburn. negative: Melena , Hematochezia Genitourinary: negative: Hematuria Neurological: negative: Dizziness, Gait Difficulty Integumentary: negative: Bruising Allergic/Immunologic: negative: Itching Hematologic: negative: Easy Bruising Endocrine: Weight Loss Psychiatric: Anxiety - Exam Vital Signs: Temperature: 98.3 F (07/29/16 09:39) HR: 96 (07/29/16 11:49) RR: 18 (07/29/16 09:39) BP: 128/83 (07/29/16 11:49) Pulse Ox: 97 (07/29/16 09:39) General: Alert, Oriented x3, Mild distress (Post surgical) HEENT: negative: Icteric Sclera Respiratory: Normal - CTA. negative: Accessory Muscle Use Cardiovascular: Regular rate Gastrointestinal: Soft, Distended (Slightly), Bowel Sounds, Tender (Diffuse), Other (Surgical sites unremarkable) Extremities: negative: Edema Skin: Warm,Dry and Intact Neurological: Normal speech Psych/Mental Status: Appropriate - Labs Result Diagrams: 07/27/16 10:00 07/27/16 10:00 Exam(s): 07-28-16 RAD/DG CHOLANGIOGRAM OPERATIVE CLINICAL DATA: Cholecystectomy E IMPRESSION: 1. Distal CBD obstruction with meniscus suggesting obstructing retained calculus Laboratory Tests 07/27/16 07/27/16 10:00 10:00 Total Bilirubin 1.1 AST 33 ALT 62 H Alkaline Phosphatase 74 Total Protein 7.2 Albumin 4.1 Lipase 80 - Assessment and Plan (1) Abnormal cholangiogram Acute R93.2 - ABNORMAL FINDINGS ON DX IMAGING OF LIVER AND BILIARY TRACT (2) Acute cholecystitis Acute K81.0 - ACUTE CHOLECYSTITIS (3) RUQ abdominal pain Acute R10.11 - RIGHT UPPER QUADRANT PAIN Recommendations: 1. Continue routine postoperative care 2. Continue antibiotic therapy 3. Ppi therapy 4. Arrange for ERCP
[2016-07-29] MEDS: OXYCODONE HCL 5 MG TABLET PO PRN (14:53)
[2016-07-29] MEDS: Levofloxacin 500 mg/100 ml D5W 500 MG/100 ML RTU IV SCH (18:35)
[2016-07-29] MEDS ORDERED: TEMAZEPAM 15 MG CAP PO ONE (22:00)
[2016-07-29] MEDS: ACETAMINOPHEN 325 MG/TAB TABLET PO SCH (23:46)
[2016-07-30] MEDS: HYDROmorphone 1 MG INJECTION IV PRN ×3 (01:36→18:15)
[2016-07-30] MEDS: PANTOPRAZOLE 40 MG TAB PO SCH (06:33)
[2016-07-30] MEDS: ACETAMINOPHEN 325 MG/TAB TABLET PO SCH ×2 (06:33→13:51)
[2016-07-30] MEDS: SODIUM CHLORIDE 0.9% 3 ML FLUSH FLUSH SCH ×2 (06:33→16:44)
[2016-07-30] MEDS ORDERED: FLU VACCINE (Afluria) 0.5 ML DOSE IM ONE (08:00)
[2016-07-30] MEDS: Metronidazole 500 mg/100 ml 500 MG/100 ML RTU IV SCH ×2 (08:25→16:36)
[2016-07-30] MEDS: OXYCODONE HCL 5 MG TABLET PO PRN (08:26)
[2016-07-30] MEDS: ONDANSETRON HCL 4 MG/2 ML VIAL IV PRN (08:34)
[2016-07-30] MEDS ORDERED: MEPERIDINE 25 MG/ML TUBEX ONE ×2 (10:03→11:05)
[2016-07-30] MEDS ORDERED: MIDAZOLAM 5 MG/5 ML VIAL ONE ×2 (10:03→11:05)
[2016-07-30] MEDS ORDERED: WATER 10 ML ONE (10:04)
[2016-07-30] MEDS ORDERED: GLUCAGON 1 MG VIAL ONE (10:04)
[2016-07-30] MEDS ORDERED: DIPHENHYDRAMINE 50 MG/ML VIAL ONE (10:04)
--- NOTE | 2016-07-30 10:12 | PCM.SURGRO ---
- Subjective Patient: Reports: No new complaints, Feels better, Pain is less - Objective / Physical Exam Vital Signs: Temperature: 97.9 F (07/30/16 09:22) HR: 77 (07/30/16 09:22)RR: 18 (07/30/16 09: 22) BP: 149/99 (07/30/16 09:22)Pulse Ox: 95 (07/30/16 09:22) General: Alert, Oriented x3, Cooperative HEENT: Normal, Anicteric Sclera Respiratory: Normal - CTA Cardiovascular: Regular rate and rhythm Gastrointestinal: Soft. negative: Distended Surgical wound site: Clean/Dry, Intact - Assessment and Plan (1) Nausea & vomiting Acute R11.2 - NAUSEA WITH VOMITING, UNSPECIFIED V V (2) RUQ abdominal pain Acute R10.11 - RIGHT UPPER QUADRANT PAIN (3) Epigastric abdominal pain Acute R10.13 - EPIGASTRIC PAIN (4) Acute cholecystitis Acute K81.0 - ACUTE CHOLECYSTITIS Plan: Patient to have ERCP today.
[2016-07-30] MEDS ORDERED: NS 1,000 ML IV ONE ×2 (10:20→12:10)
--- NOTE | 2016-07-30 11:52 | HIMOPRPT ---
DATE OF PROCEDURE: 07/30/16 PROCEDURE: ERCP INDICATIONS: Abnormal operative cholangiogram with probable choledocholithiasis INSTRUMENTS: Olympus video therapeutic duodenoscope. MEDICATIONS: Versed 21 mg IV and Demerol 75 mg IV Benadryl 50 mg IV glucagon 0.3 mg IV. PHYSICAL EXAMINATION: GENERAL: The patient was in no distress. VITAL SIGNS: Stable. CHEST: Clear. CARDIAC: Regular rate and rhythm. ABDOMEN: [Nondistended, tender post surgical . NEURO: Alert and oriented. PROCEDURE IN DETAIL: Ms Blankenship was placed in the semiprone position. IV sedation was given in small incremental doses for the patient's comfort for moderate sedation. The throat was anesthetized with Cetacaine spray. The endoscope was advanced without difficulty into the duodenum. The ampulla was identified and appeared unremarkable. A pancreatogram was normal. A cholangiogram was obtained which showed a mildly dilated common bile duct 0.7 cm. The cystic duct remnant was visualized unremarkable. There is no obvious filling defect noted. Because of her prior cholangiogram a limited sphincterotomy was performed. A 0.8 and a 01.2 cm balloon was pulled through the bile duct multiple times with no stones noted. At the end the procedure a cholangiogram was unremarkable. The patient tolerated the procedure well. . IMPRESSION: 1. Mildly dilated common bile duct otherwise normal cholangiogram post cholecystectomy. 2. Normal old pancreatogram. RECOMMENDATION: 1. NPO. 2. Continue antibiotics for now 3. Routine postoperative care for her cholecystectomy.
--- NOTE | 2016-07-30 13:16 | DIRPT ---
CLINICAL DATA: 20-year-old female with a history of cholelithiasis, choledocholithiasis EXAM: ERCP TECHNIQUE: Multiple spot images obtained with the fluoroscopic device and submitted for interpretation post-procedure. FLUOROSCOPY TIME: Fluoroscopy Time: 4 minutes 1 second COMPARISON: None. FINDINGS: Intraoperative spot fluoroscopic images. Endoscope over the upper abdomen with cannulation of the ampulla. Surgical clips representing prior cholecystectomy. Retrograde infusion of contrast into the extrahepatic biliary ductal system. Balloon basket present on the final image with no large filling defect visualized. IMPRESSION: Intraoperative fluoroscopic spot images during ERCP demonstrating extrahepatic biliary ducts within normal limits, with no large filling defect. Balloon basket present on the final image. Please refer to the dictated operative report for full details of intraoperative findings and procedure. Signed, Chapito Gonzalez, [facility] Electronically Signed By: Chapito Gonzalez D.O. On: 07/30/2016 13:13
[2016-07-30 16:49] VITALS: BP 126/74; PULSE 58; TEMP 97.9
[2016-07-30] MEDS: Levofloxacin 500 mg/100 ml D5W 500 MG/100 ML RTU IV SCH (18:07)
--- NOTE | 2016-07-30 18:27 | PCM.DCS92 ---
- Final/Secondary Discharge Diagnosis (1) Nausea & vomiting Resolved R11.2 - NAUSEA WITH VOMITING, UNSPECIFIED Present on Admission: Yes V V (2) RUQ abdominal pain Resolved R10.11 - RIGHT UPPER QUADRANT PAIN Present on Admission: Yes (3) Epigastric abdominal pain Resolved R10.13 - EPIGASTRIC PAIN Present on Admission: Yes (4) Acute cholecystitis Resolved K81.0 - ACUTE CHOLECYSTITIS Present on Admission: Yes (5) Choledocholithiasis Resolved K80.50 - CALCULUS OF BILE DUCT W/O CHOLANGITIS OR CHOLECYST W/O OBST Present on Admission: Yes Discharge Disposition: Home Discharge Condition: Stable Cognitive Discharge Status: Unimpaired Fuctional Discharge Status: Independent Physician Follow up/Referrals: Krish Rosen MD [Staff Physician] - Call for Appointment ([phone]) Home Medications/ New Prescriptions: No Action Pantoprazole Sodium [Protonix] 40 mg PO DAILY #30 tab Promethazine [Phenergan] 25 mg [place] Q6H PRN PRN Reason: Nausea/Vomiting Promethazine [Phenergan] 25 mg PO Q6H PRN PRN Reason: Nausea/Vomiting Ondansetron [Zofran Odt] 4 mg PO Q8H PRN PRN Reason: Nausea/Vomiting Ranitidine [Zantac] 300 mg PO HS Norgestimate-Ethinyl Estradiol [Sprintec] 1 each PO DAILY Diet at Discharge: Low Fat Activity: As Tolerated, No Heavy Lifting Call Office For: Worsening Symptoms - DC Summary Notes Hospital Course Note:: Discharge summary on patient named LUDIVINA CONNOR admitted to [facility] on 07/27/16 by Krish Rosen MD. Date of discharge is 07/30/16. Patient was admitted with acute cholecystitis and cholelithiasis. She had LC IOC and CBD stone was noted. She then had ERCP. This was uneventful and she is doing well at this time. Patient stable. D/C home and f/u in office. - Physical Exam Vital Signs: Initial Vitals Temperature 98.0 F 07/27/16 08:43 Pulse Rate 72 07/27/16 08:43 Respiratory Rate 20 07/27/16 08:43 Blood Pressure 192/115 H 07/27/16 08:43 Pulse Oxygen Saturation 98 07/27/16 08:43
[2016-07-31] MEDS ORDERED: FLU VACCINE (Afluria) 0.5 ML DOSE IM ONE (08:00)
== END 2016-07-30 18:49 | disposition home or self-care (01) | DRG 419 ==
LOC: ED 08:33 → MPS3 14:20
PROVIDERS: ADMIT Surgery; ATTEND Surgery
PROC: BF131ZZ Fluoroscopy of Gallbladder and Bile Ducts using Low Osmolar Contrast (ICD-10-PCS; 2016-07-28)
PROC: 0FT44ZZ Resection of Gallbladder, Percutaneous Endoscopic Approach (ICD-10-PCS; principal; 2016-07-28 10:15)
PROC: 0F798ZZ Dilation of Common Bile Duct, Via Natural or Artificial Opening Endoscopic (ICD-10-PCS; 2016-07-30)
DX: K80.42 Calculus of bile duct with acute cholecystitis without obstruction (principal); K21.9 Gastro-esophageal reflux disease without esophagitis; Z79.899 Other long term (current) drug therapy
CPT/HCPCS: 36415; 43262; 74177; 74300; 74330; 80053; 81001; 81025; 83690; 85025; 90656; 96361; 96365; 96375; 96376; 99152; 99153; 99285; A9698; J0131; J0330; J0360; J1100; J1170; J1200; J1610; J1956; J2001; J2175; J2250; J2405; J2543; J2710; J2765; J3010; J3490; J7060; S0020